=== PATIENT | female | born 1990 | race African-American/Black ===

== ENCOUNTER 2018-02-08 19:34 | Emergency (ER) | payer BC ==
[~2018-02-08] VITALS: Ht 165.1 cm; Wt 108.2 kg
[~2018-02-08 19:34] MED LIST: AMOXICILLIN500 MG OR; CIPROFLOXACN500 MG PO; NAPROSYN500 MG PO; ORTHO TRI-CY OR; PENICILLIN VK250 MG PO; ULTRAM50 M1 PO; WOMENS MULTI VITAMIN PO; ZOMIG ZMT2.5 MG PO
[2018-02-08 20:52] VITALS: BP 113/75
== END 2018-02-08 21:00 | disposition home or self-care (01) | DRG 563 ==
LOC: ED 19:34
DX: S93.401A Sprain of unspecified ligament of right ankle, initial encounter (principal); W10.9XXA Fall (on) (from) unspecified stairs and steps, initial encounter; Y92.009 Unspecified place in unspecified non-institutional (private) residence as the place of occurrence of the external cause

== ENCOUNTER 2018-08-20 16:33 | Emergency (ER) | payer BC ==
[~2018-08-20] VITALS: Ht 165.1 cm; Wt 100.0 kg
[2018-08-20 17:14] VITALS: BP 135/80
== END 2018-08-20 17:19 | disposition home or self-care (01) | DRG 833 ==
LOC: ED 16:33
DX: O22.42 Hemorrhoids in pregnancy, second trimester (principal); Z3A.23 23 weeks gestation of pregnancy

== ENCOUNTER 2021-02-04 20:04 | Emergency (ER) | payer BC ==
[~2021-02-04] VITALS: Ht 165.1 cm; Wt 109.0 kg
[2021-02-04] MEDS ORDERED: CITALOPRAM10 M1 PO (20:21)
[2021-02-04 20:46] LABS: HEMATOCRIT 35.6 % (37.0-47.0); HEMOGLOBIN 11.1 g/dl (12.0-16.0); IMMATURE GRANULOCYTES 0.1 % (0.0-5.0); MEAN CELL VOLUME 84.8 fL CALC (80.0-100.0); MEAN CORPUSCULAR HGB 26.4 pG CALC (26.0-32.0); MEAN CORPUSCULAR HGB CONC 31.2 g/dL CAL (32.0-36.0); NEUT# 5.44 thou/uL (2.00-7.15); RED BLOOD COUNT 4.2 mill/uL (4.20-5.60); RED CELL DISTRI WIDTH 15.4 % (11.5-15.5)
[2021-02-04 21:00] LABS: ALBUMIN 3.7 g/dL (3.2-5.0); ALKALINE PHOSPHATASE 71 u/l (38-126); BUN 12 mg/dL (7-17); BUN/CREATININE RATIO 13 (12-20 (CALC)); CARBON DIOXIDE 29 mmol/l (22-30); CHLORIDE 106 mmol/l (95-108); GFR > 60 ML/MIN (>=60 (CALC)); GFR FOR AFR.AMER. > 60 ML/MIN (>=60 (CALC)); SGOT/AST 20 u/l (14-36); SODIUM 140 mmol/l (137-146)
[2021-02-04 21:01] LABS: ACT PARTIAL THROMBO TIME 24.4 SECONDS (20.0-32.5); PROTHROMBIN TIME 10.3 SECONDS (9.0-12.5)
[2021-02-04 21:09] LABS: ANION GAP 9 (6-22 (CALC)); POTASSIUM 3.6 mmol/l (3.5-5.1)
[2021-02-04 21:23] LABS: D-DIMER 1.11 mg/L (0.19-0.60)
[2021-02-04] MEDS ORDERED: ESCITALOPRAM OX10 MG PO (21:37)
[2021-02-04 23:59] VITALS: BP 123/67
== END 2021-02-04 23:58 | disposition home or self-care (01) | DRG 204 ==
LOC: ED 20:04
PROVIDERS: Family Medicine
DX: R05 Cough (principal); R79.89 Other specified abnormal findings of blood chemistry; Z20.822 Contact with and (suspected) exposure to COVID-19
CPT/HCPCS: Q9967

== ENCOUNTER 2021-06-08 18:41 | Emergency (ER) | payer BC ==
[~2021-06-08] VITALS: Ht 165.1 cm; Wt 112.0 kg
[~2021-06-08 18:41] MED LIST changes: +CITALOPRAM10 M1 PO; +ESCITALOPRAM OX10 MG PO
[2021-06-08] MEDS ORDERED: SINGULAIR10 MG PO (19:55)
[2021-06-08 20:49] LABS: HEMATOCRIT 38.8 % (37.0-47.0); HEMOGLOBIN 11.9 g/dl (12.0-16.0); IMMATURE GRANULOCYTES 0.5 % (0.0-5.0); MEAN CELL VOLUME 84.2 fL CALC (80.0-100.0); MEAN CORPUSCULAR HGB 25.8 pG CALC (26.0-32.0); MEAN CORPUSCULAR HGB CONC 30.7 g/dL CAL (32.0-36.0); NEUT# 6.02 thou/uL (2.00-7.15); RED BLOOD COUNT 4.61 mill/uL (4.20-5.60); RED CELL DISTRI WIDTH 15.6 % (11.5-15.5)
[2021-06-08 22:06] VITALS: BP 150/92
== END 2021-06-08 22:20 | disposition home or self-care (01) | DRG 866 ==
LOC: ED 18:41
PROVIDERS: Family Medicine
DX: B34.9 Viral infection, unspecified (principal); Z20.822 Contact with and (suspected) exposure to COVID-19